=== PATIENT | male | born 1990 | race Caucasian/White ===

== ENCOUNTER 2020-08-27 07:04 | Inpatient (IN) | payer MEDICAID ==
[~2020-08-27] VITALS: Ht 170.2 cm; Wt 77.6 kg
[2020-08-28] MEDS ORDERED: ZOLPIDEM TARTRATE 10 MG TABLET PO PRN (06:45)
[2020-08-28] MEDS ORDERED: LORazepam 2 MG TABLET PO PRN (06:45)
[2020-08-28] MEDS ORDERED: HALOPERIDOL 5 MG TABLET PO PRN (06:45)
[2020-08-28 07:02] VITALS: BP 117/86
[2020-08-28 09:09] VITALS: BP 137/87
[2020-08-28] MEDS ORDERED: FLUO10CA24 PO (09:22)
[2020-08-28] MEDS ORDERED: NICOTINE 14 MG/24 HOUR PATCH TD PRN (12:30)
[2020-08-28 16:21] VITALS: BP 115/68
[2020-08-28] MEDS: FLUoxetine HCL 20 MG CAPSULE PO SCH (17:51)
[2020-08-29 00:28] VITALS: BP 124/83
[2020-08-29 08:23] VITALS: BP 119/78
[2020-08-29] MEDS: FLUoxetine HCL 20 MG CAPSULE PO SCH (09:17)
[2020-08-29] MEDS: ARIPiprazole 5 MG TABLET PO SCH (09:25)
[2020-08-29] MEDS ORDERED: ONDANSETRON HCL 4 MG TABLET PO PRN (10:15)
[2020-08-29] MEDS ORDERED: CloNIDine HCL 0.1 MG TABLET PO PRN (10:15)
[2020-08-29] MEDS ORDERED: ACETAMINOPHEN 325 MG TABLET PO PRN (10:15)
[2020-08-29] MEDS ORDERED: ALBUTEROL SULFATE HFA 90 MCG/PUFF 8 GM INHALER IH PRN (10:15)
[2020-08-29] MEDS ORDERED: GuaiFENesin/D-METHORPHAN [SUGAR-FREE] 200-20MG/10 ML SYRUP UDCUP PO PRN (10:15)
[2020-08-29] MEDS ORDERED: NICOTINE 14 MG/24 HOUR PATCH TD PRN (10:15)
[2020-08-29] MEDS ORDERED: PETROLATUM,WHITE 28 GM JELLY TP PRN (10:15)
[2020-08-29] MEDS ORDERED: LOPERAMIDE HCL 2 MG CAPSULE PO PRN (10:15)
[2020-08-29] MEDS ORDERED: IBUPROFEN 400 MG TABLET PO PRN (10:15)
[2020-08-29] MEDS ORDERED: MAG HYDROX/AL HYDROX/SIMETH ES 30 ML SUSPENSION UDCUP PO PRN (10:15)
[2020-08-29] MEDS ORDERED: DOCUSATE SODIUM 100 MG CAPSULE PO PRN (10:15)
[2020-08-29] MEDS ORDERED: MAGNESIUM HYDROXIDE SUSPENSION 30 ML UDCUP PO PRN (10:15)
[2020-08-29 16:33] VITALS: BP 133/82
[2020-08-30 05:43] VITALS: BP 116/76
[2020-08-30 08:24] VITALS: BP 132/86
[2020-08-30] MEDS: ARIPiprazole 5 MG TABLET PO SCH (09:26)
[2020-08-30] MEDS: FLUoxetine HCL 20 MG CAPSULE PO SCH (09:27)
[2020-08-30 16:15] VITALS: BP 120/74
[2020-08-31 05:42] VITALS: BP 134/78
[2020-08-31 08:37] VITALS: BP 130/81
[2020-08-31] MEDS: FLUoxetine HCL 20 MG CAPSULE PO SCH (08:55)
[2020-08-31] MEDS: ARIPiprazole 5 MG TABLET PO SCH (08:55)
[2020-08-31] MEDS ORDERED: FLUO20CA36 PO (11:39)
[2020-08-31] MEDS ORDERED: ARIP5TAB37 PO (11:40)
== END 2020-08-31 12:30 | disposition home or self-care (01) | DRG 751 ==
LOC: B2S 08-28 07:02
PROVIDERS: ADMIT Psychiatry & Neurology Child & Adolescent Psychiatry; ATTEND Psychiatry & Neurology Child & Adolescent Psychiatry
DX: F33.2 Major depressive disorder, recurrent severe without psychotic features (principal); R45.851 Suicidal ideations; G40.89 Other seizures; K59.00 Constipation, unspecified; F41.9 Anxiety disorder, unspecified; Z79.899 Other long term (current) drug therapy
CPT/HCPCS: Z7610